=== PATIENT | female | born 1990 ===

== ENCOUNTER 2018-05-04 09:32 | Emergency (ER) | payer OTHER ==
[~2018-05-04] VITALS: Ht 172.7 cm; Wt 74.8 kg
== END 2018-05-04 13:00 | disposition home or self-care (01) ==
LOC: ER 09:32
DX: B34.9 Viral infection, unspecified (principal)

== ENCOUNTER 2019-02-06 19:00 | Emergency (ER) | payer OTHER ==
[~2019-02-06] VITALS: Ht 172.7 cm; Wt 82.1 kg
== END 2019-02-06 22:12 | disposition home or self-care (01) ==
LOC: ER 19:00
DX: M54.6 Pain in thoracic spine (principal)

== ENCOUNTER 2020-11-13 15:14 | Emergency (ER) | payer OTHER ==
[~2020-11-13] VITALS: Ht 172.7 cm; Wt 88.5 kg
[2020-11-13] MEDS ORDERED: ERYTHROMYCIN OPH1 GM OP (17:34)
== END 2020-11-13 17:43 | disposition home or self-care (01) ==
LOC: ER 15:14
DX: H01.001 Unspecified blepharitis right upper eyelid (principal); H02.841 Edema of right upper eyelid

== ENCOUNTER 2020-12-30 13:05 | Emergency (ER) | payer OTHER ==
[~2020-12-30] VITALS: Ht 172.7 cm; Wt 88.0 kg
[~2020-12-30 13:05] MED LIST: ERYTHROMYCIN OPH1 GM OP
== END 2020-12-30 19:23 | disposition home or self-care (01) ==
LOC: ER 13:05
DX: M54.2 Cervicalgia (principal); M62.838 Other muscle spasm; Y92.410 Unspecified street and highway as the place of occurrence of the external cause; V49.40XA Driver injured in collision with unspecified motor vehicles in traffic accident, initial encounter